=== PATIENT | female | born 1935 | race Caucasian/White ===

== ENCOUNTER 2017-09-18 07:05 | Day surgery (SDC) | payer MEDICARE, BC ==
[2017-09-18] MEDS ORDERED: Dextrose 5%-Lactated Ringers 1,000 ML IV SCH (07:45)
[2017-09-18] MEDS ORDERED: Glycopyrrolate 0.2 MG/ML 2 ML SDV IVPUSH ONE (08:30)
[2017-09-18] MEDS ORDERED: Propofol 200 MG/20 ML SDV ONE (11:42)
[2017-09-18] MEDS ORDERED: Pantoprazole 40 MG Vial IVPUSH ONE (12:00)
[2017-09-18 12:59] VITALS: BP 153/72
--- NOTE | 2017-09-22 11:07 | OR ---
DATE OF PROCEDURE: 09/18/2017 PREOPERATIVE DIAGNOSIS: Iron-deficiency anemia. POSTOPERATIVE DIAGNOSES: Iron-deficiency anemia associated with erosive gastritis. OPERATIVE PROCEDURE: Upper GI endoscopy with biopsies of the antrum for CLOtest. ANESTHESIA: IV sedation. INDICATIONS FOR PROCEDURE: This is an 82-year-old presenting with some iron-deficiency anemia to initiate workup. She wished to undergo an upper GI endoscopy with biopsies as indicated. Potential risks including bleeding and perforation were reviewed, and the patient wishes to proceed. DETAILS OF PROCEDURE: The patient was taken to the operating room and placed in a left lateral decubitus position. IV sedation was administered, after which the upper GI endoscope was passed orally through the length of the esophagus and into the stomach with retroflexion to view the fundus, and thereafter through the pyloric channel into the duodenum to the level of the junction of the third and fourth portions. The hypopharynx, larynx, upper esophageal sphincter, and esophageal body were all unremarkable. No significant hiatal hernia was present and no significant inflammation was noted at the EG junction. Within the stomach, there was a very small amount of retained bile. As one approached the antrum, there was diffuse gastritis. There were multiple erosions some of which were covered with fibrinous exudate. These certainly could likely result in some intermittent bleeding, although no blood or bleeding was seen today. The pyloric channel with visualized portions of the duodenum were unremarkable. At this point, biopsies were obtained from the antrum and sent for CLOtest for H. pylori. Minimal bleeding from the biopsy sites was seen and the procedure was then concluded. The patient was taken to the recovery room in satisfactory condition. The patient will be given Protonix 40 mg IV in the recovery room and then begin 40 mg orally daily, and follow up with Dr. Evans will be in 1 month. If CLOtest is positive, we will contact the patient regarding trying anti H. pylori regimen. Bipin Carranza MD /[id number]
== END 2017-09-18 13:10 | disposition home or self-care (01) ==
LOC: JP.SDS 07:05
PROVIDERS: ATTEND Surgery
DX: K29.60 Other gastritis without bleeding (principal); I10 Essential (primary) hypertension; E11.9 Type 2 diabetes mellitus without complications; Z87.891 Personal history of nicotine dependence
CPT/HCPCS: 43239; 87081; C9113; J2704; J7042; J3490

== ENCOUNTER 2023-01-30 22:09 | Inpatient (IN) | payer MEDICARE, BC ==
[2023-01-30] MEDS ORDERED: Sodium Chloride 0.9% 10 ML Syringe FLUSH PRN (22:31)
[2023-01-30 22:40] LABS: BASOPHILS ABSOLUTE AUTO 0.06 K/uL (0.00-0.10); BASOPHILS PERCENT AUTO 0.4 % (0.1-1.3); EOSINOPHILS ABSOLUTE AUTO 0.08 K/uL (0.00-0.40); EOSINOPHILS PERCENT AUTO 0.6 % (0.0-5.4); HEMATOCRIT 31.6 % (34.3-46.0); HEMOGLOBIN 10.2 g/dL (11.2-15.5); IMMATURE GRAN ABSOLUTE AUTO 0.07 K/uL (0.00-0.23); IMMATURE GRAN PERCENT AUTO 0.5 % (0.0-0.7); LYMPHOCYTES PERCENT AUTO 13.5 % (11.4-47.7); MEAN CORPUSCULAR HGB CONC 32.3 g/dL (31.6-35.5); MEAN CORPUSCULAR VOLUME 89.8 fL (81.4-99.0); MONOCYTES ABSOLUTE AUTO 0.97 K/uL (0.20-0.90); MONOCYTES PERCENT AUTO 6.9 % (3.3-12.6); NEUTROPHILS ABSOLUTE AUTO 10.97 K/uL (1.0-7.6); NEUTROPHILS PERCENT AUTO 78.1 % (40.0-78.1); PLATELET COUNT,PLT 455 K/uL (130-375); RED BLOOD CELL COUNT 3.52 M/uL (3.77-5.24); WHITE BLOOD CELL COUNT,WBC 14.1 K/uL (3.2-11.0)
[2023-01-30] MEDS: Sodium Chloride 0.9% 1,000 ML IV SCH (22:40)
[2023-01-30 22:54] LABS: ALANINE AMINOTRANSFERASE,ALT 19 U/L (12-78); ALBUMIN 2.6 g/dL (3.4-5.0); ALKALINE PHOSPHATASE 129 U/L (46-116); ASPARTATE AMNIOTRANSFERASE,AST 26 U/L (15-37); BILIRUBIN TOTAL 0.3 mg/dL (0.2-1.0); BLOOD UREA NITROGEN,BUN 35 mg/dL (7-18); CALCIUM 8.8 mg/dL (8.5-10.1); CARBON DIOXIDE,CO2 25 mmol/L (21-32); CHLORIDE,CL 99 mmol/L (100-108); CREATININE 1.5 mg/dL (0.6-1.0); EST CRCL DRUG DOSING (CG) 21.03 mL/min; ESTIMATED GFR 33 mL/min (>60); GLUCOSE RANDOM 120 mg/dL (74-106); POTASSIUM,K 3.8 mmol/L (3.6-5.2); PROTEIN TOTAL,TP 6.6 g/dL (6.4-8.2); SODIUM,NA 135 mmol/L (140-148)
[2023-01-30 22:55] LABS: A/G RATIO 0.7 (1.2-2.2); ANION GAP 14.8 mmol/L (5.0-14.0)
[2023-01-30] MEDS ORDERED: Morphine 2 MG/ML SYRINGE IVPUSH ONE (23:57)
[2023-01-31] MEDS: Nicotine 14 MG/24 Hr Patch TRDERM SCH ×2 (00:10→10:29)
[2023-01-31] MEDS: Morphine 2 MG/ML SYRINGE IVPUSH PRN ×3 (02:27→15:18)
[2023-01-31 02:50] LABS: APPEARANCE,URINE SLIGHTLY CLOUDY (CLEAR); BILIRUBIN,URINE NEGATIVE (NEGATIVE); COLOR,URINE YELLOW (YELLOW); GLUCOSE,URINE NEGATIVE (NEGATIVE); KETONES,URINE NEGATIVE (NEGATIVE); LEUKOCYTE ESTERASE,URINE NEGATIVE (NEGATIVE); NITRITE,URINE NEGATIVE (NEGATIVE); OCCULT BLOOD,URINE NEGATIVE (NEGATIVE); PROTEIN,URINE NEGATIVE (NEGATIVE); UROBILINOGEN,URINE 0.2 EU/dL (0.2-1.0)
[2023-01-31 02:56] LABS: AMORPHOUS SEDIMENT,URINE NOT SEEN; BACTERIA,URINE FEW; EPITHELIAL CELLS,URINE RARE; MUCUS,URINE NOT SEEN; RBC,URINE 0-5 (0-5); WBC,URINE 0-5 (0-5)
[2023-01-31] MEDS ORDERED: Bupivacaine 0.5%/EPINEPHrine 1:200,000 50 ML MDV ONE (08:02)
[2023-01-31] MEDS: Sodium Chloride 0.9% 1,000 ML IV SCH (09:24)
[2023-01-31] MEDS ORDERED: Midazolam 1 MG/ML 2 ML SDV ONE (09:27)
[2023-01-31] MEDS ORDERED: Propofol 200 MG/20 ML SDV ONE (09:27)
[2023-01-31] MEDS ORDERED: fentaNYL 100 MCG/2 ML SDV ONE (09:27)
[2023-01-31] MEDS ORDERED: ePHEDrine 50 MG/ML SDV ONE (10:31)
[2023-01-31] MEDS ORDERED: Sodium Chloride 0.9% 10 ML ONE ×2 (10:34→10:40)
[2023-01-31] MEDS ORDERED: Phenylephrine 1% 10 MG/ML SDV ONE (10:34)
[2023-01-31] MEDS ORDERED: ceFAZolin 1 GM Vial ONE (10:40)
[2023-01-31] MEDS ORDERED: Lactated Ringers 1,000 ML ONE (10:41)
[2023-01-31] MEDS ORDERED: traMADol 50 MG Tab PO PRN (11:33)
[2023-01-31] MEDS ORDERED: ceFAZolin 1 GM in Sodium Chloride 0.9% 50 ML IV SCH (11:45)
[2023-01-31] MEDS: Acetaminophen/HYDROcodone 325-5 MG Tab PO PRN (14:42)
[2023-01-31] MEDS: Acetaminophen 325 MG Tab PO SCH ×2 (17:24→21:17)
[2023-01-31] MEDS: ceFAZolin 1 GM in Premix Bag 1 BAG IV SCH (17:29)
[2023-01-31] MEDS: Nozin Nasal Sanitizer NASBOTH SCH (21:00)
[2023-01-31] MEDS: traMADol 50 MG Tab PO PRN (21:16)
[2023-01-31] MEDS: Aspirin 325 MG Tab.EC PO SCH (21:17)
[2023-01-31] MEDS: QUEtiapine 25 MG Tab PO SCH (21:17)
[2023-02-01] MEDS: ceFAZolin 1 GM in Premix Bag 1 BAG IV SCH (02:56)
[2023-02-01] MEDS: Acetaminophen 325 MG Tab PO SCH ×4 (04:50→21:56)
[2023-02-01] MEDS: traMADol 50 MG Tab PO PRN (07:56)
[2023-02-01] MEDS: Nicotine 14 MG/24 Hr Patch TRDERM SCH (08:01)
[2023-02-01] MEDS: Nozin Nasal Sanitizer NASBOTH SCH ×2 (08:01→21:55)
[2023-02-01] MEDS: Aspirin 325 MG Tab.EC PO SCH ×2 (08:02→21:56)
[2023-02-01] MEDS ORDERED: Glucose Gel 15 GM in 37.5 GM Tube PO PRN (10:39)
[2023-02-01] MEDS ORDERED: 50% Dextrose in Water 50 ML Syringe IV PRN (10:39)
[2023-02-01] MEDS ORDERED: Magnesium Hydroxide 400 MG/5 ML Susp 30 ML Cup PO PRN (11:33)
[2023-02-01] MEDS: Insulin Lispro 100 Unit/ML 3 ML KwikPen SUBCUT SCH ×3 (11:53→21:55)
[2023-02-01] MEDS: Acetaminophen/HYDROcodone 325-5 MG Tab PO PRN (13:04)
[2023-02-01 15:36] LABS: BASOPHILS ABSOLUTE AUTO 0.04 K/uL (0.00-0.10); BASOPHILS PERCENT AUTO 0.3 % (0.1-1.3); EOSINOPHILS ABSOLUTE AUTO 0.03 K/uL (0.00-0.40); EOSINOPHILS PERCENT AUTO 0.2 % (0.0-5.4); HEMOGLOBIN 8.1 g/dL (11.2-15.5); IMMATURE GRAN ABSOLUTE AUTO 0.04 K/uL (0.00-0.23); IMMATURE GRAN PERCENT AUTO 0.3 % (0.0-0.7); LYMPHOCYTES ABSOLUTE AUTO 1.07 K/uL (0.8-3.3); LYMPHOCYTES PERCENT AUTO 8.5 % (11.4-47.7); MEAN CORPUSCULAR HEMOGLOBIN 29.3 pg (31.6-35.5); MEAN CORPUSCULAR HGB CONC 32.4 g/dL (31.6-35.5); MEAN CORPUSCULAR VOLUME 90.6 fL (81.4-99.0); MONOCYTES ABSOLUTE AUTO 0.84 K/uL (0.20-0.90); MONOCYTES PERCENT AUTO 6.7 % (3.3-12.6); NEUTROPHILS ABSOLUTE AUTO 10.61 K/uL (1.0-7.6); PLATELET COUNT,PLT 337 K/uL (130-375); RED BLOOD CELL COUNT 2.76 M/uL (3.77-5.24); WHITE BLOOD CELL COUNT,WBC 12.6 K/uL (3.2-11.0)
[2023-02-01] MEDS: Ampicillin/Sulbactam Na 1.5 GM in Sodium Chloride 0.9% 50 ML IV SCH ×2 (15:53→22:04)
[2023-02-01] MEDS: methylPREDNISolone Sodium Succinate 40 MG/1 ML SDV IVPUSH SCH (15:53)
[2023-02-01] MEDS ORDERED: Ampicillin/Sulbactam Na 1.5 GM in Sodium Chloride 0.9% 50 ML IV SCH ×4 (16:00)
[2023-02-01] MEDS: Docusate Sodium 100 MG Cap PO SCH (21:56)
[2023-02-01] MEDS: QUEtiapine 25 MG Tab PO SCH (21:56)
[2023-02-02] MEDS: methylPREDNISolone Sodium Succinate 40 MG/1 ML SDV IVPUSH SCH ×3 (00:44→15:07)
[2023-02-02] MEDS: Acetaminophen/HYDROcodone 325-5 MG Tab PO PRN ×2 (03:22→10:55)
[2023-02-02] MEDS: Ampicillin/Sulbactam Na 1.5 GM in Sodium Chloride 0.9% 50 ML IV SCH ×4 (03:22→21:06)
[2023-02-02] MEDS: Acetaminophen 325 MG Tab PO SCH ×4 (03:22→21:05)
[2023-02-02 05:49] LABS: BASOPHILS PERCENT AUTO 0.1 % (0.1-1.3); HEMATOCRIT 24.8 % (34.3-46.0); IMMATURE GRAN ABSOLUTE AUTO 0.08 K/uL (0.00-0.23); IMMATURE GRAN PERCENT AUTO 0.6 % (0.0-0.7); LYMPHOCYTES ABSOLUTE AUTO 0.57 K/uL (0.8-3.3); LYMPHOCYTES PERCENT AUTO 4.3 % (11.4-47.7); MEAN CORPUSCULAR HEMOGLOBIN 29.1 pg (31.6-35.5); MEAN CORPUSCULAR HGB CONC 32.3 g/dL (31.6-35.5); MEAN CORPUSCULAR VOLUME 90.2 fL (81.4-99.0); MONOCYTES ABSOLUTE AUTO 0.18 K/uL (0.20-0.90); MONOCYTES PERCENT AUTO 1.4 % (3.3-12.6); NEUTROPHILS ABSOLUTE AUTO 12.31 K/uL (1.0-7.6); NEUTROPHILS PERCENT AUTO 93.6 % (40.0-78.1); PLATELET COUNT,PLT 347 K/uL (130-375); RED BLOOD CELL COUNT 2.75 M/uL (3.77-5.24); WHITE BLOOD CELL COUNT,WBC 13.2 K/uL (3.2-11.0)
[2023-02-02 05:50] LABS: BASOPHILS ABSOLUTE AUTO 0.01 K/uL (0.00-0.10)
[2023-02-02 06:03] LABS: CALCIUM 8.6 mg/dL (8.5-10.1); CREATININE 1.4 mg/dL (0.6-1.0); EST CRCL DRUG DOSING (CG) 22.53 mL/min
[2023-02-02] MEDS: Insulin Lispro 100 Unit/ML 3 ML KwikPen SUBCUT SCH ×4 (07:27→21:10)
[2023-02-02] MEDS: Nicotine 14 MG/24 Hr Patch TRDERM SCH (09:12)
[2023-02-02] MEDS: Nozin Nasal Sanitizer NASBOTH SCH ×2 (09:12→21:04)
[2023-02-02] MEDS: Aspirin 325 MG Tab.EC PO SCH ×2 (09:12→21:05)
[2023-02-02] MEDS: Docusate Sodium 100 MG Cap PO SCH ×2 (09:14→21:04)
[2023-02-02] MEDS ORDERED: Polyethylene Glycol 3350 Powder 17 GM Packet PO ONE (12:00)
[2023-02-02] MEDS ORDERED: Sodium Phosphate,Monobasic/Sodium Phosphate,Dibasic Enema 133 ML Bottle RECTAL PRN (12:15)
[2023-02-02] MEDS ORDERED: Bisacodyl 10 MG Supp RECTAL ONE (12:30)
[2023-02-02] MEDS: QUEtiapine 25 MG Tab PO SCH (21:05)
[2023-02-03] MEDS: methylPREDNISolone Sodium Succinate 40 MG/1 ML SDV IVPUSH SCH ×2 (00:45→08:51)
[2023-02-03] MEDS: Acetaminophen/HYDROcodone 325-5 MG Tab PO PRN ×3 (01:17→17:16)
[2023-02-03] MEDS: Ampicillin/Sulbactam Na 1.5 GM in Sodium Chloride 0.9% 50 ML IV SCH ×4 (04:16→21:31)
[2023-02-03] MEDS: Acetaminophen 325 MG Tab PO SCH ×4 (04:20→21:26)
[2023-02-03 04:47] LABS: BASOPHILS PERCENT AUTO 0.1 % (0.1-1.3); HEMATOCRIT 23.1 % (34.3-46.0); HEMOGLOBIN 7.5 g/dL (11.2-15.5); IMMATURE GRAN ABSOLUTE AUTO 0.13 K/uL (0.00-0.23); IMMATURE GRAN PERCENT AUTO 0.7 % (0.0-0.7); LYMPHOCYTES ABSOLUTE AUTO 0.87 K/uL (0.8-3.3); LYMPHOCYTES PERCENT AUTO 4.5 % (11.4-47.7); MEAN CORPUSCULAR HGB CONC 32.5 g/dL (31.6-35.5); MEAN CORPUSCULAR VOLUME 89.2 fL (81.4-99.0); MONOCYTES ABSOLUTE AUTO 0.39 K/uL (0.20-0.90); NEUTROPHILS ABSOLUTE AUTO 18.13 K/uL (1.0-7.6); NEUTROPHILS PERCENT AUTO 92.7 % (40.0-78.1); PLATELET COUNT,PLT 369 K/uL (130-375); RED BLOOD CELL COUNT 2.59 M/uL (3.77-5.24); WHITE BLOOD CELL COUNT,WBC 19.5 K/uL (3.2-11.0)
[2023-02-03 05:01] LABS: CALCIUM 8.4 mg/dL (8.5-10.1); CREATININE 1.7 mg/dL (0.6-1.0); EST CRCL DRUG DOSING (CG) 18.55 mL/min; POTASSIUM,K 4.3 mmol/L (3.6-5.2)
[2023-02-03 05:19] LABS: BASOPHILS ABSOLUTE AUTO 0.02 K/uL (0.00-0.10)
[2023-02-03 05:22] LABS: ANION GAP 15.3 mmol/L (5.0-14.0)
[2023-02-03] MEDS: Insulin Lispro 100 Unit/ML 3 ML KwikPen SUBCUT SCH ×4 (08:50→21:25)
[2023-02-03] MEDS: Nozin Nasal Sanitizer NASBOTH SCH ×2 (08:50→21:26)
[2023-02-03] MEDS: Docusate Sodium 100 MG Cap PO SCH ×2 (08:51→21:26)
[2023-02-03] MEDS: Nicotine 14 MG/24 Hr Patch TRDERM SCH (08:51)
[2023-02-03] MEDS: Aspirin 325 MG Tab.EC PO SCH ×2 (08:51→21:26)
[2023-02-03] MEDS ORDERED: predniSONE 20 MG Tab PO ONE (15:00)
[2023-02-03] MEDS: QUEtiapine 25 MG Tab PO SCH (21:26)
[2023-02-04] MEDS: Ampicillin/Sulbactam Na 1.5 GM in Sodium Chloride 0.9% 50 ML IV SCH (03:58)
[2023-02-04] MEDS: Acetaminophen/HYDROcodone 325-5 MG Tab PO PRN ×3 (03:58→15:29)
[2023-02-04] MEDS: Acetaminophen 325 MG Tab PO SCH ×4 (04:03→21:34)
[2023-02-04 04:21] LABS: HEMATOCRIT 23.6 % (34.3-46.0); HEMOGLOBIN 7.7 g/dL (11.2-15.5); MEAN CORPUSCULAR HEMOGLOBIN 28.5 pg (31.6-35.5); MEAN CORPUSCULAR HGB CONC 32.6 g/dL (31.6-35.5); MEAN CORPUSCULAR VOLUME 87.4 fL (81.4-99.0); RED BLOOD CELL COUNT 2.7 M/uL (3.77-5.24); WHITE BLOOD CELL COUNT,WBC 18.3 K/uL (3.2-11.0)
[2023-02-04 04:42] LABS: CREATININE 1.5 mg/dL (0.6-1.0); EST CRCL DRUG DOSING (CG) 21.02 mL/min; POTASSIUM,K 3.9 mmol/L (3.6-5.2)
[2023-02-04 05:11] LABS: ANION GAP 13.9 mmol/L (5.0-14.0)
[2023-02-04] MEDS: Insulin Lispro 100 Unit/ML 3 ML KwikPen SUBCUT SCH ×4 (07:37→21:01)
[2023-02-04] MEDS: Nozin Nasal Sanitizer NASBOTH SCH ×2 (08:01→21:33)
[2023-02-04] MEDS: predniSONE 20 MG Tab PO SCH (08:02)
[2023-02-04] MEDS: Nicotine 14 MG/24 Hr Patch TRDERM SCH (08:02)
[2023-02-04] MEDS: Docusate Sodium 100 MG Cap PO SCH ×2 (08:02→21:33)
[2023-02-04] MEDS: Aspirin 325 MG Tab.EC PO SCH ×2 (08:02→21:33)
[2023-02-04] MEDS: Amoxicillin/Clavulanate K 500-125 MG Tab PO SCH ×2 (09:43→21:33)
[2023-02-04] MEDS: QUEtiapine 25 MG Tab PO SCH (21:33)
[2023-02-05] MEDS: Acetaminophen/HYDROcodone 325-5 MG Tab PO PRN ×2 (01:52→09:38)
[2023-02-05] MEDS: Acetaminophen 325 MG Tab PO SCH ×2 (05:20→09:30)
[2023-02-05] MEDS: Insulin Lispro 100 Unit/ML 3 ML KwikPen SUBCUT SCH (08:16)
[2023-02-05] MEDS: Aspirin 325 MG Tab.EC PO SCH (09:29)
[2023-02-05] MEDS: Nozin Nasal Sanitizer NASBOTH SCH (09:29)
[2023-02-05] MEDS: Amoxicillin/Clavulanate K 500-125 MG Tab PO SCH (09:29)
[2023-02-05] MEDS: Docusate Sodium 100 MG Cap PO SCH (09:29)
[2023-02-05] MEDS: Nicotine 14 MG/24 Hr Patch TRDERM SCH (09:29)
[2023-02-05] MEDS: predniSONE 20 MG Tab PO SCH (09:30)
[2023-02-05 11:06] VITALS: BP 133/43; PULSE 64
== END 2023-02-05 11:15 | DRG 480 ==
LOC: JP.ED 22:09 → JP.MS 23:55
PROVIDERS: ADMIT Family Medicine; ATTEND Internal Medicine
PROC: 0QS634Z Reposition Right Upper Femur with Internal Fixation Device, Percutaneous Approach (ICD-10-PCS; principal; 2023-01-31)
DX: S72.142A Displaced intertrochanteric fracture of left femur, initial encounter for closed fracture (principal); J69.0 Pneumonitis due to inhalation of food and vomit; D62 Acute posthemorrhagic anemia; J44.9 Chronic obstructive pulmonary disease, unspecified; G30.9 Alzheimer's disease, unspecified; F02.80 Dementia in other diseases classified elsewhere, unspecified severity, without behavioral disturbance, psychotic disturbance, mood disturbance, and anxiety; W18.30XA Fall on same level, unspecified, initial encounter; E11.22 Type 2 diabetes mellitus with diabetic chronic kidney disease; I12.9 Hypertensive chronic kidney disease with stage 1 through stage 4 chronic kidney disease, or unspecified chronic kidney disease; M54.9 Dorsalgia, unspecified; G89.29 Other chronic pain; G43.909 Migraine, unspecified, not intractable, without status migrainosus; D50.9 Iron deficiency anemia, unspecified; E78.5 Hyperlipidemia, unspecified; F41.9 Anxiety disorder, unspecified; N18.32 Chronic kidney disease, stage 3b; Z98.890 Other specified postprocedural states; Z79.899 Other long term (current) drug therapy; Z79.82 Long term (current) use of aspirin; Z87.891 Personal history of nicotine dependence; Z86.73 Personal history of transient ischemic attack (TIA), and cerebral infarction without residual deficits; Y92.098 Other place in other non-institutional residence as the place of occurrence of the external cause
CPT/HCPCS: 36415; 71045; 71045-26; 73502-26-LT; 73502-LT; 76000; 80048; 80053; 81001; 82947; 85025; 85027; 93005; 96360; 97161-GP; 97530-GP; 99233; 99239; 99285-25; A9270-GY; C1713; C1776; J0295; J0690; J1815; J2250; J2270; J2370; J2704; J2920; J3010; J3490; J7030; J7120; J7512; U0002